=== PATIENT | male | born 1970 | race Caucasian/White ===

== ENCOUNTER 2016-05-25 19:07 | Emergency (ER) | payer OTHER ==
[~2016-05-25] VITALS: Ht 188 cm; Wt 113.6 kg
[2016-05-25 19:53] VITALS: BP 126/87
[2016-05-25] MEDS ORDERED: LIDOCAINE 1%, 20ML ONE (21:17)
[2016-05-25] MEDS ORDERED: DIPH,PERTUSS(ACELL),TET VAC/PF 0.5 ML IM-VACC ONE ×2 (21:19→21:30)
== END 2016-05-25 20:55 | disposition home or self-care (01) ==
LOC: ED 20:49
DX: S61.012A Laceration without foreign body of left thumb without damage to nail, initial encounter (principal); W26.0XXA Contact with knife, initial encounter; Y93.89 Activity, other specified; Y92.89 Other specified places as the place of occurrence of the external cause; Y99.9 Unspecified external cause status
CPT/HCPCS: 12041; 90471; 90715

== ENCOUNTER → 2017-07-13 | Outpatient (CLI) | payer OTHER ==
[~2017-07-13] MED LIST: ATOR10TA PO; AZEL137S4 NAS; ESCI20TA10 PO; FLUT9.9S NS
== END ==
LOC: STAR 13:09
PROVIDERS: ATTEND Surgery
DX: Z02.9 Encounter for administrative examinations, unspecified (principal)